=== PATIENT | male | born 1980 | race Two or more races ===

== ENCOUNTER 2017-10-30 17:10 | Emergency (ER) | payer OTHER ==
--- NOTE | 2017-10-30 17:41 | EDPHY ---
H & P Stated Complaint: inj back lifting at work last month/pain low back into buttock /prob urinati Time Seen by Provider: 10/30/17 17:21 HPI/ROS: CHIEF COMPLAINT: Low back pain, perineal pain HISTORY OF PRESENT ILLNESS: The patient presents to the ED with a 1 month history of low back pain. The patient initially sustained a lifting injury at work. He has been under the care of a chiropractor. Over the past several weeks he has developed pain in his perineal area and some urinary hesitancy. The patient denies any numbness or weakness in his legs. The patient reports his pain is moderate in nature. It is bilateral and located primarily over the sacral lumbar area. REVIEW OF SYSTEMS: A comprehensive 10 point review of systems is otherwise negative aside from elements mentioned in the history of present illness. Source: Patient Exam Limitations: No limitations - Personal History Current Tetanus/Diphtheria Vaccine: No - Medical/Surgical History Hx Asthma: No Hx Chronic Respiratory Disease: No Hx Diabetes: No Hx Cardiac Disease: No Hx Renal Disease: No Hx Cirrhosis: No Hx Alcoholism: No Hx HIV/AIDS: No Hx Splenectomy or Spleen Trauma: No Other PMH: denies - Social History Smoking Status: Never smoked - Physical Exam Exam: General Appearance: Alert, no distress Eyes: Pupils equal and round no pallor or injection ENT, Mouth: Mucous membranes moist Respiratory: There are no retractions, lungs are clear to auscultation Cardiovascular: Regular rate and rhythm Gastrointestinal: Abdomen is soft and nontender, no masses, bowel sounds normal Neurological: 5/5 strength bilateral lower extremities at the AT/PT/EHL/FHL/ knee and hip. Sensation intact to light touch throughout the lower extremity. Patient does report decreased sensation in his perineal area. Skin: Warm and dry, no rashes Musculoskeletal: Neck is supple nontender Extremities: symmetrical, full range of motion Constitutional: Initial Vital Signs Temperature (C) 37 C 10/30/17 17:13 Heart Rate 69 10/30/17 17:13 Respiratory Rate 18 10/30/17 17:13 Blood Pressure 136/87 H 10/30/17 17:13 O2 Sat (%) 97 10/30/17 17:13 O2 Delivery Mode Room Air Allergies/Adverse Reactions: No Known Allergies Allergy (Unverified 10/30/17 17:20) Home Medications: Medication Instructions Recorded Lidocaine 5% [Lidoderm 5% Patch 1 ea TD DAILY #12 patch 10/30/17 (*)] predniSONE [prednisone 20mg (RX)] 3 tab PO DAILY #15 tab 10/30/17 Medical Decision Making - Diagnostics Imaging Results: Imaging Impressions Lumbar Spine MRI 10/30/17 17:50 Impression: No visible etiology for the patient's symptoms. Findings discussed with Ceasar Field 10/30/2017 at 18:52. ED Course/Re-evaluation: The patient presents to the ED with complaints of a 1 month history of low back pain. The patient has been having increasing perineal pain. He is having questionable urinary retention. The patient denies any fever or history of IV drug use. The patient denies history of malignancy. The patient denies any prior surgery. The patient was noted to be neurologically intact aside from decreased sensation in his perineal area. Given concerns about a possible cauda equina or conus lesion a MRI of the lumbar spine was ordered and it demonstrates no evidence of acute neurosurgical pathology. The patient has been reassured of the findings. He has been instructed to take prednisone for the next 6 days in addition to NSAIDs. Differential Diagnosis: Differential diagnosis considered includes cauda equina syndrome, lumbar herniation, sacroiliitis, myofascial strain Departure - Departure Disposition: Home, Routine, Self-Care Clinical Impression: Low back pain Condition: Good Instructions: Acute Low Back Pain (ED) Additional Instructions: 1. Take prednisone as directed for next 5 days for your of back pain. 2. Lidocaine patches as prescribed for low back pain. 3. Follow up with your primary care provider as needed. 4. Your MRI demonstrates no evidence of an obvious disc herniation or neuro surgical emergency. Referrals: Audra Hall PA [Primary Care Provider] - As per Instructions
[2017-10-30 19:28] VITALS: BP 125/77; PULSE 81; RESP 16; TEMP 98.4; O2SAT 95
== END 2017-10-30 19:26 | disposition home or self-care (01) ==
DX: M54.5 Low back pain (principal)